=== PATIENT | female | born 1955 | race Caucasian/White ===

== ENCOUNTER 2023-01-08 08:47 | Emergency (ER) | payer MEDICARE, SELFPAY ==
--- NOTE | ~2023-01-08 | XR_ITS ---
EXAMINATION: XR KNEE, LEFT CLINICAL INFORMATION: Left leg swelling COMPARISON: None available. TECHNIQUE: Four views of the left knee. FINDINGS: There is narrowing in medial compartment with some tibial plateau sclerosis and small lateral tibial osteophyte. Bones and soft tissues are otherwise unremarkable. No fracture or joint effusion. Alignment is anatomic. The lateral and patellofemoral compartments are maintained. No abnormal soft tissue calcification. XR/XR knee LT 4V IMPRESSION: Mild degenerative changes in the medial compartment.
--- NOTE | ~2023-01-08 | US_ITS ---
EXAMINATION: US VENOUS ULTRASOUND WITH DOPPLER LOWER EXTREMITY, LEFT CLINICAL INFORMATION: Left leg swelling COMPARISON: None available. TECHNIQUE: Ultrasound of the deep veins is performed from the hip to the calf with compression sonography and color and pulse Doppler assessment. Spectral analysis with color-flow imaging is performed. FINDINGS: There is normal venous compression and respiratory variation and augmented flow. The visualized common femoral vein, superficial femoral vein, profunda femoral vein, popliteal vein, and the trifurcation region shows no evidence of deep venous thrombosis. There is a Haas's cyst present measuring 4.4 x 1.5 x 2.4 cm. If the patient's symptoms persist, followup ultrasound in 5 days 7 days might be of value to exclude proximal propagation from a non-visualized calf vein. US/US venous duplex LE IMPRESSION: No DVT demonstrated in the left lower extremity.
[2023-01-08 08:56] VITALS: BP 163/90; PULSE 110; RESP 18; TEMP 36.9; O2SAT 98; BMI 27.0
--- NOTE | 2023-01-08 10:00 | PC.NURSE ---
doppler used to assess pulses, CMS and pedal/posterior tibial pulses intact, spots marked w/ marker.
--- NOTE | 2023-01-08 11:05 | ED.EXTPRO ---
HPI - Extremity Problem General Chief complaint: Extremity Problem Stated complaint: L Leg Foot Swelling No Injury Time Seen by Provider: 01/08/23 09:17 Source: patient and RN notes reviewed Mode of arrival: ambulatory Limitations: no limitations History of Present Illness HPI Narrative: This is a 67-year-old female, with no known past medical history, presented to the emergency department for evaluation of left foot and swelling for the last week. Patient reports that she has had trouble with her bilateral knees reports that her right knee has given out on her in the past but reports that her left knee has been causing her more problems lately. She reports that about 2 weeks ago she was knealing and when she stood up she felt pain in her knee. Patient reports that she has noticed some left leg and foot swelling with associated numbness and tingling. She reports that the swelling improves overnight and while she walks the swelling gradually increases again. Patient reports that she is feeling well, she denies any fevers, chills, chest pain, shortness of breath, palpitations. Denies history of similar symptoms in the past. No recent travel, surgeries, hospitalizations. No history of blood clots in the past. No other complaints or concerns at this time. MD Complaint: extremity pain, joint swelling and joint pain Onset (ago): day(s) Radiation: none Relieving factors: nothing Exacerbating factors: nothing Associated symptoms: denies other symptoms Related Data Allergies Allergy/AdvReac Type Severity Reaction Status Date / Time No Known Allergies Allergy Verified 01/08/23 09:02 Review of Systems Review of Systems: General: Awake, alert, and oriented X3. No acute distress. HEENT: Normal inspection CVS: Normal heart rate and rhythm. Pulses normal. Respiratory: No respiratory distress Skin: Warm, dry, no rashes noted to exposed skin. Normal skin color. Normal skin turgor. Extremities: Left knee with mild tenderness to palpation along the patella, pain with varus strain. No calf tenderness to palpation, and no palpable cords. Negative Borrego's, negative Homans. There is scant edema noted to the anterior surface of the left foot. Neuro: Oriented X 3. No motor deficit. No sensory deficit. Yes all other systems are reviewed and are negative Constitutional: Constitutional: Reports as per [facility] Past Medical History Medical History (Updated 01/08/23 @ 12:13 by IBRAHIMA Valdez) Abdominal hernia Surgical History (Updated 01/08/23 @ 09:19 by Crystal Campa) History of delivery Social History Social History Alcohol intake: current Alcohol intake frequency: a few times a week Alcohol type: other Smoked in Last 30 Days: No Use of substances other than those prescribed or required for medical reasons: No Advance Directives: No Advance Directives Information Provided: Yes Physical Exam Vital Signs: Vital Signs: Last Vital Signs Temp 98.4 F 01/08/23 08:56 Pulse 110 H 01/08/23 08:56 Resp 18 01/08/23 08:56 BP 163/90 H 01/08/23 08:56 Pulse Ox 98 01/08/23 08:56 O2 Del Method Room Air 01/08/23 08:56 BMI result Body Mass Index 27.0 Const: General: cooperative, comfortable and no acute distress Orientation/consciousness: patient oriented x3 Limitations: no limitations HEENT: Head: Yes normal to inspection, Yes normocephalic and Yes atraumatic Ears: hearing grossly normal bilaterally General nose exam: Normal external nose present Face and sinus: Yes normal facial exam Mouth: Normal oral and palatal mucosa present, oropharynx normal and moist mucous membranes Throat: Yes posterior oropharynx normal Eyes: General: appearance normal, both eyes and all related structures Eyelids: Yes eyelids normal Conjunctivae: conjunctivae normal Sclerae: sclerae normal Pupils: Equal, round and reactive pupils present EOM: EOMs intact bilaterally Neck: Neck: Yes normal visual inspection, Yes full ROM and Yes no lymphadenopathy Lymphatic: no lymphadenopathy noted Chest: Chest palpation & inspection: normal inspection of the chest Resp: Effort & Inspection: normal respiratory effort and able to speak in complete sentences Auscultation: clear to auscultation bilaterally, no crackles, no rales, no rhonchi and no wheezes Cardio: Rate: regular rate Rhythm: regular rhythm Heart sounds: S1 normal heart sound present and S2 normal heart sound present GI: Inspection: Yes normal to inspection Skin: General skin exam: no rashes or lesions noted Trauma: no lacerations or abrasions Wounds: no wounds Neuro: General: patient oriented x3 and moves all extremities Cranial nerves: Yes Equal, round and reactive pupils present Extrem: General: Yes normal to inspection Right upper extremity: normal to inspection Left upper extremity: normal to inspection Right lower extremity: normal to inspection Left lower extremity: normal to inspection Course Reevaluation(s) Reevaluation #1: Ultrasound revealing no DVT however there is a Haas cyst noted. X-ray of left knee pending. Time: 11:25 Reevaluation #2: X-ray of the left knee showing mild degenerative changes especially over the medial compartment. Discussed these results with patient. Educated that patient's swelling is likely due to degenerative changes in the knee as well as Haas cyst. Advised to use knee brace which he has at home, elevate and use compression stockings. Patient vital signs remained stable, patient is comfortable. 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 Patient understands and agrees with plan. Given return precautions. Patient stable for discharge. Time: 12:14 Medical Decision Making Medical Decision Making MDM Narrative: 67-year-old female presenting to the emergency department for evaluation of left foot and ankle swelling. Patient recently had pain in her right knee. Has noticed increased swelling to her leg. Patient endorses some numbness and tingling into her left leg. Swelling improves overnight. On examination, left knee with mild tenderness along the patella and pain with varus strain. No calf tenderness, no palpable cords. Patient has no chest pain, shortness of breath, or palpitations Plan: Ultrasound, left knee x-ray ordered Differential Diagnosis Differential Diagnoses: The differential diagnosis associated with the presentation includes DVT, Haas's cyst, left knee sprain, left knee strain Admission/Observation Consideration of admission/observation: Escalation of care including admission/observation considered Independent Interpretation I performed an independent interpretation of an: Ultrasound Radiology Impression Discussion of test interpretation with radiology: I have reviewed the radiologist's reading. Radiologist Impression: EXAMINATION:? US VENOUS ULTRASOUND WITH DOPPLER LOWER EXTREMITY, LEFT CLINICAL INFORMATION:? Left leg swelling COMPARISON:? None available. TECHNIQUE: Ultrasound of the deep veins is performed from the hip to the calf with compression sonography and color and pulse Doppler assessment. Spectral analysis with color-flow imaging is performed. FINDINGS: There is normal venous compression and respiratory variation and augmented flow. The visualized common femoral vein, superficial femoral vein, profunda femoral vein, popliteal vein, and the trifurcation region shows no evidence of deep venous thrombosis. ? There is a Haas's cyst present measuring 4.4 x 1.5 x 2.4 cm. If the patient's symptoms persist, followup ultrasound in 5 days 7 days might be of value to exclude proximal propagation from a non-visualized calf vein. US/US venous duplex LE LT IMPRESSION: No DVT demonstrated in the left lower extremity. Dictated By: Naresh Galindo MD EXAMINATION: XR KNEE, LEFT CLINICAL INFORMATION: Left leg swelling? COMPARISON: None available.? TECHNIQUE: Four views of the left knee. FINDINGS: There is narrowing in medial compartment with some tibial plateau sclerosis and small lateral tibial osteophyte. Bones and soft tissues are otherwise unremarkable. No fracture or joint effusion. Alignment is anatomic. The lateral and patellofemoral compartments are maintained. No abnormal soft tissue calcification.? XR/XR knee LT 4V IMPRESSION: Mild degenerative changes in the medial compartment. ? Dictated By: Naresh Galindo MD Signed By: <Electronically signed by Naresh Galindo MD in OV> 01/08/23 1157 DD/ 1102 TD/TT:? Patient Safety Manager: External Record Review External record reviewed: Inpatient record, Office record, Outpatient record, Prior outpatient labs, Prior outpatient radiology, Primary care record and Outside ED record Discharge Plan Discharge Clinical Impression: Haas cyst, Degenerative joint disease of knee, left Patient Disposition: Home, Self-Care Instructions: Bakers Cyst (ED), Osteoarthritis (ED) Additional Instructions: Your knee x-ray showed mild degenerative changes in the medial compartment. Your ultrasound today showed no blood clot (DVT) in your left leg. Your ultrasound did show a Haas cyst which can be contributing to your symptoms. Please rest and elevate your left leg as this will help reduce swelling. You may also use compression stockings to help with the swelling. Wearing a brace around her knee will help support your left knee. If any new or worsening symptoms including but not limited to worsening swelling, chest pain, shortness of breath, occur please return for re-evaluation. Follow-up with your recycling specialist for further management. Referrals: [facility] [Provider Group]
== END 2023-01-08 12:48 | disposition home or self-care (01) ==
PROVIDERS: Emergency Provider Emergency Medicine; PCP Physician Assistant Medical
DX: M71.22 Synovial cyst of popliteal space [Baker], left knee (principal); M17.12 Unilateral primary osteoarthritis, left knee; M79.662 Pain in left lower leg
CPT/HCPCS: 73564; 93971; 99283; 99284